=== PATIENT | female | born 1985 | race Caucasian/White ===

== ENCOUNTER 2021-02-03 10:20 | Emergency (ER) | payer OTHER ==
[~2021-02-03] VITALS: Ht 167.6 cm; Wt 77.1 kg
[2021-02-03] MEDS ORDERED: ONDANSETRON ODT8 MG PO (12:59)
--- NOTE | 2021-02-03 20:17 | EKG ---
[facility] [address] [facility] [place], [place] [address] Signed Normal sinus rhythm with sinus arrhythmia Normal ECG No previous ECGs available Confirmed by MISSY PINEDA DO ([id number]) on 02/03/2021 8:17:18 PM Electronically Signed By: MISSY PINEDA DO 02/03/212016 PATIENT NAME: JOSE ANTONIO SCHWARTZ Electrocardiogram DATE OF : 87 PHYSICIAN: MISSY PINEDA DO REPORT #: [id number] REPORT IS CONFIDENTIAL AND NOT TO BE RELEASED WITHOUT AUTHORIZATION
== END 2021-02-03 13:04 | disposition home or self-care (01) ==
LOC: ED 10:20
DX: R07.89 Other chest pain (principal)
CPT/HCPCS: 80053; 83690; 84484; 85025; 93005; 93010; 96374; 99285-25; J2405